=== PATIENT | male | born 2000 | race Caucasian/White ===

== ENCOUNTER 2018-06-30 08:29 | Emergency (ER) | payer BC, SELFPAY ==
[2018-06-30 09:01] LABS: #Basophils 0.1 thou/uL (0.0-0.2); #Eosinphils 0.4 thou/uL (0.0-0.7); #Lymphocytes 2.3 thou/uL (1.20-3.40); #Monocytes 0.8 thou/uL (0.11-0.59); #Neutrophils 4.7 thou/uL (1.40-6.50); %Basophils 1.1 % (0.0-1.0); %Eosinophils 5.1 % (0.0-10.0); %Lymphocytes 27.9 % (28.0-48.0); %Monocytes 9.3 % (0.0-4.0); %Neutrophils 56.6 % (31.0-61.0); Hemoglobin 14.8 g/dL (14.0-18.0); Mean Corpuscular HGB CONC 32.5 g/dL (32.0-36.0); Mean Corpuscular Hemoglobin 28.2 pg (25.0-35.0); Mean Platelet Volume 7.8 fL (7.4-10.4); Platelet Count 265 thou/uL (130-400); RBC Distribution Width 11.5 % (11.5-14.5); Red Blood Cell (RBC) Count 5.25 mill/uL (4.00-5.20); White Blood Cell (WBC) Count 8.3 thou/uL (4.8-10.8)
[2018-06-30 09:23] LABS: ALT (SGPT) 53 U/L (8-55); AST (SGOT) 26 U/L (10-45); Albumin 4.3 g/dL (3.5-5.0); Alkaline Phosphatase 88 U/L (Less than 750); Anion Gap 11 mmol/L (10-20); BUN (Urea Nitrogen) 13 mg/dL (8.4-21.0); Bilirubin, Total 0.6 mg/dL (0.2-1.2); Calc. Creatinine Clearance 0 mL/min (70-130); Calcium 9.9 mg/dL (7.8-10.44); Carbon Dioxide 24 mmol/L (22-29); Chloride 105 mmol/L (98-107); Estimated GFR-MDRD Greater than 90; Globulin 3.1 g/dL (2.4-3.5); Glucose 105 mg/dL (70-105); Potassium 3.9 mmol/L (3.5-5.1); Protein, Total 7.4 g/dL (6.0-8.3); Sodium 136 mmol/L (136-145)
--- NOTE | 2018-06-30 10:29 | RAD ---
PA AND LATERAL CHEST: Date: 06/30/18 INDICATION: Chest pain with palpitations and shortness of breath. COMPARISON: Prior study dated 03/01/03. This examination was performed when the patient was 2 years old. FINDINGS: The lungs are clear. There is no evidence of any consolidation. No pleural effusion is demonstrated. The heart size is normal. The pulmonary vasculature is normal. No acute osseous abnormality is eviden t. IMPRESSION: No acute cardiopulmonary abnormality. POS: [facility]
--- NOTE | 2018-07-04 12:02 | EKG ---
Test Reason : Blood Pressure : / mmHG Vent. Rate : 101 BPM Atrial Rate : 101 BPM P-R Int : 152 ms QRS Dur : 106 ms QT Int : 338 ms P-R-T Axes : -05 005 -01 degrees QTc Int : 438 ms Sinus tachycardia Otherwise normal ECG Confirmed by ILAN BA DO ([id number]), editor in chief JOSE R RATLIFF ([id number]) on 07/04/2018 12:01:51 PM Referred By: Confirmed By:ILAN BA DO
== END 2018-06-30 11:40 | disposition home or self-care (01) ==
LOC: ERS 08:29
DX: R07.2 Precordial pain (principal); R06.00 Dyspnea, unspecified
CPT/HCPCS: 36415; 71046; 80053; 84484; 85025; 85379; 93005

== ENCOUNTER 2019-09-22 14:58 | Emergency (ER) | payer BC, OTHER ==
[2019-09-23 11:04] LABS: SARS-CoV-2 MS2 Positive; SARS-CoV-2 N Gene Negative; SARS-CoV-2 S Gene Negative; SARS-CoV-2 orf1ab Negative
== END 2019-09-22 15:21 | disposition home or self-care (01) ==
LOC: ERS 14:58
DX: Z20.828 Contact with and (suspected) exposure to other viral communicable diseases (principal); J45.909 Unspecified asthma, uncomplicated
CPT/HCPCS: 87635; 99283; U0003

== ENCOUNTER 2020-08-08 04:06 | Emergency (ER) | payer BC ==
[2020-08-08] MEDS ORDERED: Ibuprofen 200 MG TAB ONE (04:29)
[2020-08-08] MEDS ORDERED: Acetaminophen 500 MG TAB ONE (04:29)
[2020-08-08 04:53] LABS: #Basophils 0.1 thou/uL (0.0-0.2); #Eosinphils 0.2 thou/uL (0.0-0.7); #Lymphocytes 3.4 thou/uL (1.20-3.40); #Monocytes 0.9 thou/uL (0.11-0.59); #Neutrophils 5.5 thou/uL (1.40-6.50); %Basophils 1.2 % (0.0-1.0); %Eosinophils 2.3 % (0.0-10.0); %Lymphocytes 33.6 % (21.0-51.0); %Monocytes 8.6 % (0.0-10.0); %Neutrophils 54.2 % (42.0-75.0); Hemoglobin 14.8 g/dL (14.0-18.0); Mean Corpuscular HGB CONC 33.3 g/dL (32.0-36.0); Mean Corpuscular Hemoglobin 29.8 pg (27.0-31.0); Mean Corpuscular Volume 89.4 fL (78.0-98.0); Mean Platelet Volume 8.4 fL (7.4-10.4); Platelet Count 265 thou/uL (130-400); RBC Distribution Width 11.3 % (11.5-14.5); Red Blood Cell (RBC) Count 4.95 mill/uL (4.70-6.10); White Blood Cell (WBC) Count 10.1 thou/uL (4.8-10.8)
[2020-08-08 05:10] LABS: ALT (SGPT) 32 U/L (8-55); AST (SGOT) 24 U/L (5-34); Albumin 4.1 g/dL (3.5-5.0); Alkaline Phosphatase 89 U/L (40-110); Anion Gap 14 mmol/L (10-20); BUN (Urea Nitrogen) 17 mg/dL (8.9-20.6); Bilirubin, Total 0.5 mg/dL (0.2-1.2); Calc. Creatinine Clearance 0 mL/min (70-130); Calcium 9.4 mg/dL (7.8-10.44); Carbon Dioxide 22 mmol/L (22-29); Chloride 106 mmol/L (98-107); Globulin 3.2 g/dL (2.4-3.5); Glucose 107 mg/dL (70-105); Potassium 4.1 mmol/L (3.5-5.1); Protein, Total 7.3 g/dL (6.0-8.3); Sodium 138 mmol/L (136-145)
== END 2020-08-08 05:42 | disposition home or self-care (01) ==
LOC: ERS 04:06
DX: R07.9 Chest pain, unspecified (principal); J45.909 Unspecified asthma, uncomplicated
CPT/HCPCS: 71045; 80053; 84484; 85025; 85379; 93005

== ENCOUNTER 2022-03-02 07:22 | Emergency (ER) | payer BC ==
[2022-03-02] MEDS ORDERED: Ondansetron ODT 8 MG TAB ONE (07:43)
[2022-03-02] MEDS ORDERED: Acetaminophen 500 MG TAB ONE (07:43)
[2022-03-02] MEDS ORDERED: Ketorolac Tromethamine 30 MG/ML VIAL ONE (08:12)
== END 2022-03-02 08:30 | disposition home or self-care (01) ==
LOC: ERS 07:22
DX: S09.90XA Unspecified injury of head, initial encounter (principal); I10 Essential (primary) hypertension; Y04.0XXA Assault by unarmed brawl or fight, initial encounter; Y92.143 Cell of prison as the place of occurrence of the external cause
CPT/HCPCS: 70450; 70486; 96372; J1885; Q0162

== ENCOUNTER 2022-07-01 13:28 | Outpatient (CLI) | payer BC | END 2022-07-01 13:29 | disposition home or self-care (01) | LOC: DTY/OP 13:28 | PROVIDERS: ATTEND Surgery | DX: E66.01 Morbid (severe) obesity due to excess calories (principal) | CPT/HCPCS: 97802 ==

== ENCOUNTER 2023-10-03 12:34 | Outpatient (CLI) | payer BC, OTHER | END 2023-10-03 12:35 | disposition home or self-care (01) | LOC: DTY/OP 12:34 | PROVIDERS: ATTEND Surgery | DX: E66.01 Morbid (severe) obesity due to excess calories (principal) | CPT/HCPCS: 97802 ==